=== PATIENT | female | born 1995 | race Caucasian/White ===

== ENCOUNTER 2017-03-23 11:10 | Emergency (ER) | payer BC, OTHER ==
[2017-03-23 11:16] VITALS: BP 114/76; PULSE 89; TEMP 97.4; BMI 36.8
[2017-03-23] MEDS ORDERED: KETOROLAC TROMETHAMINE 60 MG/2 ML VIAL IM ONE (11:53)
[2017-03-23] MEDS ORDERED: CYCLOBENZAPRINE HCL 10 MG TABLET (FP) PO ONE (11:53)
--- NOTE | 2017-03-23 11:59 | PDOC ---
History of Present Illness - General Chief Complaint: Back Pain Stated Complaint: BACK PAIN Time Seen by Provider: 03/23/17 11:43 History Source: Patient Exam Limitations: No Limitations - History of Present Illness Initial Comments: 03/23/17 11:58 Sent here with complaints of low back strain and spasm 2 days. States had onset of low back pain that was intermittent and spontaneous resolved over the past 2 months but 2 days ago sneezed and had acute onset of spasm to her low back. Denies numbness or tingling to toes, denies any dysuria or bowel problems , no vaginal complaints. Has never had known injury, no car accidents, no exercise changes. 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 03/23/17 11:59 Occurred: denies: just prior to arrival Severity: reports: mild, moderate Pain Location: reports: back Method of Injury: Yes: unknown Loss of Consciousness: no loss of consciousness Associated Symptoms (Fall): denies symptoms Past History - Travel Traveled outside of the country in the last 30 days: No Close contact w/someone who was outside of country & ill: No - Past Medical History Allergies/Adverse Reactions: Allergies Allergy/AdvReac Type Severity Reaction Status Date / Time No Known Allergies Allergy Verified 03/23/17 11:16 Home Medications: Ambulatory Orders Cyclobenzaprine HCl [Flexeril 10 mg] 10 mg PO BID PRN #14 tablet 03/23/17 COPD: No - Immunization History Immunization Up to Date: Yes - Suicide/Smoking/Psychosocial Hx Smoking Status: No Smoking History: Never smoked Number of Cigarettes Smoked Daily: 0 Hx Alcohol Use: Yes (social) Drug/Substance Use Hx: No Substance Use Type: None Trauma Specific PMHX - Complaint Specific PMHX Back Injury: No Neck Injury: No Review of Systems - Review of Systems Able to Perform ROS?: Yes Is the patient limited Prydeinig proficient: Yes Constitutional: Yes: Symptoms Reported, See HPI, Malaise HEENTM: No: Symptoms Reported Respiratory: Yes: Symptoms reported ABD/GI: Yes: See HPI. No: Symptoms Reported Musculoskeletal: Yes: Symptoms Reported, See HPI, Back Pain, Joint Swelling Integumentary: Yes: Symptoms Reported Neurological: Yes: Symptoms reported, See HPI. No: Numbness, Paresthesia *Physical Exam - Vital Signs Last Vital Signs Temp Pulse Resp BP Pulse Ox 97.4 F L 89 20 114/76 97 03/23/17 11:13 03/23/17 11:13 03/23/17 11:13 03/23/17 11:13 03/23/17 11:13 - Physical Exam General Appearance: Yes: Nourished, Appropriately Dressed, Apparent Distress, Mild Distress HEENT: positive: TRESSA, Normal ENT Inspection, TMs Normal, Pharynx Normal Neck: positive: Supple. negative: Lymphadenopathy (R), Lymphadenopathy (L) Respiratory/Chest: positive: Lungs Clear, Normal Breath Sounds Gastrointestinal/Abdominal: positive: Soft Musculoskeletal: positive: Normal Inspection, Decreased Range of Motion (range of motion secondary to palpable spasm to paravertebral spinous muscles), Muscle Spasm. 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 NML intact, Fully Oriented, Alert, Normal Mood/ Affect, Normal Response, Motor Strength 5/5 Progress Note - Progress Note Progress Note: Back spasm, will treat with NSAIDs and cyclobenzaprine *DC/Admit/Observation/Transfer Diagnosis at time of Disposition: Spasm of back muscles - Discharge Dispostion Disposition: HOME Condition at time of disposition: Stable Admit: No - Referrals - Patient Instructions Printed Discharge Instructions: DI for Back Spasm Additional Instructions: Rest, no heavy lifting or exercise until pain is resolved Hot soaks to neck and low back as often as possible/hot showers or Jacuzzis No massage or therapy until spasm is gone Continue ibuprofen 2-200 mg tablets every 6 hours for the next 3 days then as needed for pain and swelling Cyclobenzaprine 1-10mg every 8 hours as needed for spasm If not significant improvement within 24 hours with medication and rest regime, followup with private physician for change in medications and /or therapy. - Post Discharge Activity Forms/Work/School Notes: Back to Work
[2017-03-23] MEDS ORDERED: CYCLOBENZAPRINE HCL 10 MG TABLET (FP) ONE (12:02)
[2017-03-23] MEDS ORDERED: KETOROLAC TROMETHAMINE 60 MG/2 ML VIAL ONE (12:02)
== END 2017-03-23 12:11 | disposition home or self-care (01) ==
LOC: JERFT 11:10
PROC: 3E0233Z Introduction of Anti-inflammatory into Muscle, Percutaneous Approach (ICD-10-PCS; principal; 2017-03-23)
DX: M62.830 Muscle spasm of back (principal)
CPT/HCPCS: 99281-25

== ENCOUNTER 2017-06-24 22:15 | Emergency (ER) | payer BC, OTHER ==
[2017-06-24 22:49] VITALS: BMI 39.1
[2017-06-25] MEDS ORDERED: ACETAMINOPHEN 325 MG TABLET (FP) PO ONE (00:41)
[2017-06-25] MEDS ORDERED: ONDANSETRON 4 MG/2 ML VIAL IVPB ONE (00:41)
[2017-06-25] MEDS ORDERED: LACTATED RINGERS SOLUTION 1,000 ML/1,000 ML INFUS.BAG IV SCH (00:45)
--- NOTE | 2017-06-25 00:51 | PDOC ---
History of Present Illness - General History Source: Patient Exam Limitations: No Limitations - History of Present Illness Initial Comments: 06/25/17 00:59 The patient is a 22 year old female, with no significant past medical history who presents to the emergency department with fever (Tmax 102.3) and diarrhea for the past two days. Patient reports loose stools (non bloody) with associated cold sweats, body aches and decreased appetite. Upon evaluation, patients vital signs significant for 100.1 temperature and 92 HR. Patient denies sick contacts or recent travel. Patient denies chest pain, headache or dizziness. Patient denies nausea, vomit or constipation. Patient denies dysuria, frequency, urgency or hematuria. Allergies: NKA <Barbara Estrada - Last Filed: 06/25/17 00:59> - General History Source: Patient Exam Limitations: No Limitations <Jorge Terry - Last Filed: 06/25/17 02:46> - General Chief Complaint: Diarrhea Stated Complaint: FEVER, DEHYDRATION, DIARRHEA Time Seen by Provider: 06/25/17 00:23 Past History <Barbara Estrada - Last Filed: 06/25/17 00:59> - Past Medical History COPD: No - Immunization History Immunization Up to Date: Yes - Suicide/Smoking/Psychosocial Hx Smoking Status: No Smoking History: Never smoked Have you smoked in the past 12 months: No Number of Cigarettes Smoked Daily: 0 Information on smoking cessation initiated: No Hx Alcohol Use: No Drug/Substance Use Hx: No Substance Use Type: None <Jorge Terry - Last Filed: 06/25/17 02:46> - Past Medical History Allergies/Adverse Reactions: Allergies Allergy/AdvReac Type Severity Reaction Status Date / Time No Known Allergies Allergy Verified 06/24/17 22:37 Home Medications: Ambulatory Orders Cyclobenzaprine HCl [Flexeril 10 mg] 10 mg PO BID PRN #14 tablet 03/23/17 Mag Hydrox/Aluminum Hyd/Simeth [Maalox Advanced Suspension] 30 ml PO Q6H PRN # 355 oral.susp 06/25/17 Naproxen 500 mg PO BID PRN #20 tablet 06/25/17 Review of Systems - Review of Systems Able to Perform ROS?: Yes Comments:: 06/25/17 00:59 GENERAL/CONSTITUTIONAL: + fever. +chills. +Decreased appetite. No weakness. HEAD, EYES, EARS, NOSE AND THROAT: No change in vision. No ear pain or discharge. No sore throat. CARDIOVASCULAR: No chest pain or shortness of breath. RESPIRATORY: No cough, wheezing, or hemoptysis. GASTROINTESTINAL: +diarrhea. No nausea, vomiting or constipation. GENITOURINARY: No dysuria, frequency, or change in urination. MUSCULOSKELETAL: No joint or muscle swelling or pain. No neck or back pain. SKIN: No rash NEUROLOGIC: No headache, vertigo, loss of consciousness, or change in strength/ sensation. ENDOCRINE: No increased thirst. No abnormal weight change. HEMATOLOGIC/LYMPHATIC: No anemia, easy bleeding, or history of blood clots. ALLERGIC/IMMUNOLOGIC: No hives or skin allergy. <Barbara Estrada - Last Filed: 06/25/17 00:59> *Physical Exam - Vital Signs Last Vital Signs Temp Pulse Resp BP Pulse Ox 100.1 F H 92 H 18 92/53 98 06/24/17 22:38 06/24/17 22:38 06/24/17 22:38 06/24/17 22:38 06/24/17 22:38 - Physical Exam Comments: 06/25/17 00:59 GENERAL: Awake, alert, and fully oriented, in no acute distress. +Obese. HEAD: No signs of trauma EYES: PERRLA, EOMI, sclera anicteric, conjunctiva clear ENT: Auricles normal inspection, hearing grossly normal, nares patent, oropharynx clear without exudates. +Dry mucous membranes. NECK: Normal ROM, supple, no lymphadenopathy, JVD, or masses LUNGS: Breath sounds equal, clear to auscultation bilaterally. No wheezes, and no crackles HEART: Regular rate and rhythm, normal S1 and S2, no murmurs, rubs or gallops ABDOMEN: Soft, nontender, normoactive bowel sounds. No guarding, no rebound. No masses EXTREMITIES: Normal range of motion, no edema. No clubbing or cyanosis. No cords, erythema, or tenderness NEUROLOGICAL: Cranial nerves II through XII grossly intact. Normal speech, normal gait SKIN: Warm, Dry, normal turgor, no rashes or lesions noted. <Barbara Estrada - Last Filed: 06/25/17 00:59> - Vital Signs Last Vital Signs Temp Pulse Resp BP Pulse Ox 100.1 F H 92 H 18 92/53 98 06/24/17 22:38 06/24/17 22:38 04 22:38 06/24/17 22:38 06/24/17 22:38 <Jorge Terry - Last Filed: 06/25/17 02:46> ED Treatment Course - LABORATORY CBC & Chemistry Diagram: 06/25/17 00:45 06/25/17 00:45 <Barbara Estrada - Last Filed: 06/25/17 00:59> - LABORATORY CBC & Chemistry Diagram: 06/25/17 00:45 06/25/17 00:45 <Jorge Terry - Last Filed: 06/25/17 02:46> Medical Decision Making - Medical Decision Making 06/25/17 00:50 A portion of this note was documented by scribe services under my direction. I have reviewed the details of the note, within reason, and agree with the documentation with the following case summary and management plan written by me. Patient treated in the ED. Nursing notes are reviewed and incorporated into the medical decision-making. Vital signs reviewed. Peripheral IV access obtained by the nurse, laboratory studies are drawn and sent, reviewed and interpreted by myself. Vital Signs Temp Pulse Resp BP Pulse Ox 100.1 F H 92 H 18 92/53 98 06/24/17 22:38 04 22:38 04 22:38 06/24/17 22:38 06/24/17 22:38 22-year-old female with no past medical history presents with likely gastroenteritis. Patient reported since yesterday of having multiple loose stools and decreased appetite as well as fevers 102. Denies sick contacts or recent travels. Denies bad food. Came to the ED for further evaluation. The patient is nontoxic appearing. I suspect gastritis. Labs, IV fluids, symptom control reassess. 06/25/17 02:42 CBC, BMP 06/25/17 00:45 06/25/17 00:45 CMP Sodium 137 mmol/L (136-145) 06/25/17 00:45 Potassium 3.8 mmol/L (3.5-5.1) 06/25/17 00:45 Chloride 105 mmol/L (98-107) 06/25/17 00:45 Carbon Dioxide 24 mmol/L (21-32) 06/25/17 00:45 Anion Gap 8 (8-16) 06/25/17 00:45 BUN 13 mg/dL (7-18) 06/25/17 00:45 Creatinine 0.9 mg/dL (0.55-1.02) 06/25/17 00:45 Creat Clearance w eGFR > 60 (>60) 06/25/17 00:45 Random Glucose 92 mg/dL (74-106) 06/25/17 00:45 Calcium 8.7 mg/dL (8.5-10.1) 06/25/17 00:45 Total Bilirubin 0.4 mg/dL (0.2-1.0) D 06/25/17 00:45 AST 334 U/L (15-37) H 06/25/17 00:45 ALT 293 U/L (12-78) H 06/25/17 00:45 Alkaline Phosphatase 90 U/L (45-117) 06/25/17 00:45 Total Protein 7.0 g/dl (6.4-8.2) 06/25/17 00:45 Albumin 3.9 g/dl (3.4-5.0) 06/25/17 00:45 Lipase 102 U/L (73-393) 06/25/17 00:45 Serum , Qual Negative 06/25/17 00:45 Urine Test Results Urine Color [place] 06/25/17 01:36 Urine Appearance Clear 06/25/17 01:36 Urine pH 5.0 (5.0-8.0) 06/25/17 01:36 Ur Specific [place] 1.028 (1.001-1.035) 06/25/17 01:36 Urine Protein 1+ (NEGATIVE) H 06/25/17 01:36 Urine Glucose (UA) Negative (NEGATIVE) 06/25/17 01:36 Urine Ketones Trace (NEGATIVE) H 06/25/17 01:36 Urine Blood Negative (NEGATIVE) 06/25/17 01:36 Urine Nitrite Negative (NEGATIVE) 06/25/17 01:36 Urine Bilirubin Negative (<2.0 mg/dL) 06/25/17 01:36 Ur Leukocyte Esterase Negative (NEGATIVE) 06/25/17 01:36 Ur Epithelial Cells Rare /HPF (FEW) 06/25/17 01:36 Urine Mucus Many 06/25/17 01:36 The patient reports feeling better. Incidentally, the patient is noted to have an AST and ALT 334 and 293. The patient never had right upper quadrant pain and was not nauseous or vomiting. Patient has had intermittent abdominal cramping with diarrhea. I still believe that the patient likely has gastroenteritis and at this time unlikely to have any biliary pathology or cholecystitis or liver pathology. Denies tylenol use. Given that the patient is no right upper quadrant pain and that she has no fever or vomiting, I have instructed the patient to take a copy the results and have her follow-up with outpatient GI for outpatient ultrasound. I advised patient that she has any right upperquadrant pain or vomiting that she should return to the ER. Patient states that she agrees with the plan. The elevated LFTs may be secondary to fatty liver. Otherwise, patient understands plan and agrees with it. I discussed the physical exam findings, ancillary test results and final diagnoses with the patient. I answered all of the patient's questions. The patient was satisfied with the care received and felt comfortable with the discharge plan and treatment plan. The patient will call their primary care physician within 24 hours to arrange follow-up and will return to the Emergency Department with any new, persistant or worsening symptoms. <Jorge Terry - Last Filed: 06/25/17 02:46> *DC/Admit/Observation/Transfer - Attestations Scribe Attestion: 06/25/17 00:59 Documentation prepared by Barbara Estrada, acting as medical officer psychiatry for Jorge Terry MD <Barbara Estrada - Last Filed: 06/25/17 00:59> - Discharge Dispostion Admit: No <Jorge Terry - Last Filed: 06/25/17 02:46> Diagnosis at time of Disposition: Viral gastroenteritis, Elevated LFTs - Discharge Dispostion Disposition: HOME Condition at time of disposition: Improved - Prescriptions Prescriptions: Mag Hydrox/Aluminum Hyd/Simeth [Maalox Advanced Suspension] 30 ml PO Q6H PRN # 355 oral.susp PRN Reason: Abdominal Pain Naproxen 500 mg PO BID PRN #20 tablet PRN Reason: Pain/Fever - Referrals Referrals: Ming Stein MD [Staff Physician] - Daniel Carrera MD [Staff Physician] - - Patient Instructions Printed Discharge Instructions: DI for Viral Gastroenteritis -- Adult Additional Instructions: Your blood work has elevated liver function tests. At this time, we advised that you follow-up with a blasting contract miner. Please call tomorrow to schedule an appointment. He will likely need an outpatient right upper quadrant ultrasound for further evaluation. If you develop any severe abdominal pain in the right upper quadrant, please return to the ER for further evaluation. Please drink plenty fluids and rest. It may take several days before your symptoms improved. - Post Discharge Activity Forms/Work/School Notes: Back to Work
[2017-06-25] MEDS ORDERED: ACETAMINOPHEN 325 MG TABLET (FP) ONE (00:57)
[2017-06-25] MEDS ORDERED: ONDANSETRON 4 MG/2 ML VIAL ONE (00:58)
[2017-06-25 01:06] LABS: BASO % 0.5 % (0-2.0); EOS % 0.5 % (0-4.5); HEMATOCRIT 44.9 % (32.4-45.2); HEMOGLOBIN 15.1 GM/dL (10.7-15.3); LYMPH % 10.5 % (8-40); MCH 29.4 pg (25.7-33.7); MCHC 33.7 g/dl (32.0-36.0); MEAN CELL VOLUME 87.1 fl (80-96); MEAN PLT VOLUME 8.4 fl (7.5-11.1); MONO % 6.1 % (3.8-10.2); NEUT % 82.4 % (42.8-82.8); PLATELET COUNT 345 K/MM3 (134-434); RBC 5.15 M/mm3 (3.60-5.2); WHITE BLOOD COUNT 9.8 K/mm3 (4.0-10.0)
[2017-06-25 01:56] LABS: ALBUMIN 3.9 g/dl (3.4-5.0); ANION GAP 8 (8-16); BILIRUBIN,TOTAL 0.4 mg/dL (0.2-1.0); BLOOD UREA NITROGEN 13 mg/dL (7-18); CALCIUM 8.7 mg/dL (8.5-10.1); CHLORIDE 105 mmol/L (98-107); CO2 24 mmol/L (21-32); CREATININE 0.9 mg/dL (0.55-1.02); GLUCOSE,RANDOM 92 mg/dL (74-106); LIPASE 102 U/L (73-393); POTASSIUM 3.8 mmol/L (3.5-5.1); SGOT/AST 334 U/L (15-37); SGPT/ALT 293 U/L (12-78); SODIUM 137 mmol/L (136-145)
[2017-06-25 01:57] LABS: ALK PHOS 90 U/L (45-117)
[2017-06-25 01:59] LABS: URINE APPEARANCE CLEAR; URINE BILIRUBIN NEGATIVE (<2.0 mg/dL); URINE BLOOD NEGATIVE (NEGATIVE); URINE COLOR AMBER; URINE GLUCOSE (UA) NEGATIVE (NEGATIVE); URINE KETONE TRACE (NEGATIVE); URINE LEUK ESTERASE NEGATIVE (NEGATIVE); URINE NITRITE NEGATIVE (NEGATIVE); URINE UROBILINOGEN NEGATIVE mg/dL (0.2-1.0)
[2017-06-25 02:04] LABS: URINE PROTEIN 1+ (NEGATIVE)
[2017-06-25 02:06] LABS: EPI CELLS RARE /HPF (FEW); URINE MUCUS MANY
[2017-06-25 02:15] LABS: HCG,QUALITATIVE URINE NEGATIVE
[2017-06-25 03:38] VITALS: BP 101/60; PULSE 68; TEMP 98.6
--- NOTE | 2017-06-26 13:21 | EKG ---
Test Reason : Blood Pressure : / mmHG Vent. Rate : 078 BPM Atrial Rate : 078 BPM P-R Int : 154 ms QRS Dur : 078 ms QT Int : 370 ms P-R-T Axes : 052 078 047 degrees QTc Int : 421 ms SINUS RHYTHM WITH MARKED SINUS ARRHYTHMIA OTHERWISE NORMAL ECG NO PREVIOUS ECGS AVAILABLE Confirmed by CLEMENT SCHMIDT MD ([id number]) on 06/26/2017 1:20:55 PM Referred By: Confirmed By:CLEMENT SCHMIDT MD
== END 2017-06-25 03:38 | disposition home or self-care (01) ==
LOC: JER 22:15
PROC: 3E0337Z Introduction of Electrolytic and Water Balance Substance into Peripheral Vein, Percutaneous Approach (ICD-10-PCS; principal; 2017-06-24)
PROC: 3E033GC Introduction of Other Therapeutic Substance into Peripheral Vein, Percutaneous Approach (ICD-10-PCS; 2017-06-24)
DX: A08.4 Viral intestinal infection, unspecified (principal); B97.89 Other viral agents as the cause of diseases classified elsewhere; R74.8 Abnormal levels of other serum enzymes
CPT/HCPCS: 36415; 80053; 81003; 81015; 83690; 84703; 85025; 87086; 93005; 93010; 99282-25

== ENCOUNTER 2019-02-24 12:58 | Emergency (ER) | payer OTHER, BC ==
[2019-02-24 13:10] VITALS: TEMP 97.7; BMI 35.4
[2019-02-24] MEDS ORDERED: ACETAMINOPHEN 1000 MG/100 ML VIAL (NON FORMULARY) IVPB ONE (13:57)
[2019-02-24] MEDS ORDERED: ONDANSETRON 4 MG/2 ML VIAL IVPUSH ONE (13:57)
[2019-02-24] MEDS ORDERED: SODIUM CHLORIDE 1,000 ML IV STA (13:57)
[2019-02-24] MEDS ORDERED: ONDANSETRON 4 MG/2 ML VIAL ONE (14:05)
[2019-02-24] MEDS ORDERED: ACETAMINOPHEN INJECTION 100 ML IVPB ONE (14:05)
--- NOTE | 2019-02-24 14:08 | PDOC ---
*Physical Exam - Vital Signs Last Vital Signs Temp Pulse Resp BP Pulse Ox 97.7 F 62 16 110/72 99 02/24/19 13:07 02/24/19 13:07 02/24/19 13:07 02/24/19 13:07 02/24/19 13:07 ED Treatment Course - LABORATORY CBC & Chemistry Diagram: 02/24/19 14:10 02/24/19 14:10 Medical Decision Making - Medical Decision Making 02/24/19 14:07 Ms King is a 23 yo F who presents to the ER with a complaint of RLQ pain Symptoms have been present for 1 week but were intermittent Over the past day pain has been chronic and persistent Pt seen by Midlevel Provider under my direct supervision Pt interviewed and examined On examination Patient is overall well appearing Regular rate and rhythm Clear to auscultation bilaterally No abdominal distention Right lower abdominal tenderness to deep palpation Ancillary studies reviewed Laboratory Tests 02/24/19 02/24/19 02/24/19 14:08 14:08 14:10 WBC 6.5 Hgb 14.1 Hct 42.7 Plt Count 407 Urine Blood Negative Urine Nitrite Negative Ur Leukocyte Esterase Negative Urine HCG, Qual Negative Ultrasound pending CT pending I agree with plan as outlined by Midlevel Provider 02/24/19 15:40 US with right ovarian cyst 4 x 2 Nml flow No evidence of appendicitis Pt will need to follow up with financial examiner for cyst Discharge - Discharge Information Problems reviewed: Yes Clinical Impression/Diagnosis: Ovarian cyst Qualifiers: Laterality: right Qualified Code(s): N83.201 - Unspecified ovarian cyst, right side Condition: Stable Disposition: HOME - Additional Discharge Information Prescriptions: Ibuprofen 600 mg PO Q6H #30 tablet - Follow up/Referral Referrals: Bing Salinas MD [Primary Care Provider] - - Patient Discharge Instructions Patient Printed Discharge Instructions: DI for Ovarian Cyst Additional Instructions: You were evaluated for your abdominal pain today. You have an ovarian cyst which is most likely causing your symptoms. Please take Motrin 600 mg every 6 hours for pain. You may place a heating pad over the area to help with the pain. Please follow-up with your LOOM CHANGER this week. Return to the ER for worsening pain, vomiting, lightheadedness or if you have any changes in your symptoms. - Post Discharge Activity Work/Back to School Note: Back to Work
[2019-02-24 14:27] LABS: URINE APPEARANCE CLEAR; URINE BILIRUBIN NEGATIVE (NEGATIVE); URINE COLOR YELLOW; URINE GLUCOSE (UA) NEGATIVE (NEGATIVE); URINE KETONE NEGATIVE (NEGATIVE); URINE LEUK ESTERASE NEGATIVE (NEGATIVE); URINE NITRITE NEGATIVE (NEGATIVE); URINE PROTEIN NEGATIVE (NEGATIVE); URINE UROBILINOGEN 0.2 mg/dL (0.2-1.0)
[2019-02-24 15:09] LABS: EOS % 2.9 % (0-4.5); HEMATOCRIT 42.7 % (32.4-45.2); HEMOGLOBIN 14.1 GM/dL (10.7-15.3); LYMPH % 29.7 % (8-40); MCH 29.7 pg (25.7-33.7); MEAN PLT VOLUME 7.9 fl (7.5-11.1); MONO % 7.9 % (3.8-10.2); NEUT % 58.5 % (42.8-82.8); PLATELET COUNT 407 K/MM3 (134-434); RBC 4.75 M/mm3 (3.60-5.2); WHITE BLOOD COUNT 6.5 K/mm3 (4.0-10.0)
[2019-02-24 15:19] LABS: INR 0.95 (0.83-1.09); PROTHROMBIN TIME (PATIENT) 11.2 SEC (9.7-13.0)
[2019-02-24 15:39] LABS: BILIRUBIN,TOTAL 0.3 mg/dL (0.2-1); BLOOD UREA NITROGEN 12.4 mg/dL (7-18); CALCIUM 9.7 mg/dL (8.5-10.1); CREATININE 0.7 mg/dL (0.55-1.3); POTASSIUM 4.3 mmol/L (3.5-5.1)
--- NOTE | 2019-02-24 15:42 | PDOC ---
History of Present Illness - General Chief Complaint: Pain, Acute Stated Complaint: ABD/PAIN Time Seen by Provider: 02/24/19 13:22 History Source: Patient Exam Limitations: No Limitations Past History - Travel Traveled outside of the country in the last 30 days: No Close contact w/someone who was outside of country & ill: No - Past Medical History Allergies/Adverse Reactions: Allergies Allergy/AdvReac Type Severity Reaction Status Date / Time No Known Allergies Allergy Verified 02/24/19 13:06 Home Medications: Ambulatory Orders Ibuprofen 600 mg PO Q6H #30 tablet 02/24/19 COPD: No - Immunization History Immunization Up to Date: Yes - Psycho Social/Smoking Cessation Hx Smoking Status: No Smoking History: Never smoked Have you smoked in the past 12 months: No Number of Cigarettes Smoked Daily: 0 Hx Alcohol Use: Yes (social) Drug/Substance Use Hx: No Substance Use Type: None Review of Systems - Review of Systems Able to Perform ROS?: Yes Comments:: 02/24/19 15:40 CONSTITUTIONAL: Absent: fever, chills, diaphoresis, generalized weakness, malaise, loss of appetite HEENT: Absent: rhinorrhea, nasal congestion, throat pain, throat swelling, difficulty swallowing, mouth swelling, ear pain, eye pain, visual Changes CARDIOVASCULAR: Absent: chest pain, loss of consciousness, palpitations, irregular heart rate, peripheral edema RESPIRATORY: Absent: cough, shortness of breath, dyspnea with exertion, orthopnea, wheezing, stridor, hemoptysis GASTROINTESTINAL: Absent: abdominal pain, abdominal distension, nausea, vomiting, diarrhea, constipation, melena, hematochezia GENITOURINARY: Absent: dysuria, frequency, urgency, hesitancy, hematuria, flank pain, genital pain MUSCULOSKELETAL: Absent: myalgia, arthralgia, joint swelling SKIN: Absent: rash, itching, pallor HEMATOLOGIC/IMMUNOLOGIC: Absent: easy bleeding, easy bruising, lymphadenopathy, frequent infections ENDOCRINE: Absent: unexplained weight gain, unexplained weight loss, heat intolerance, cold intolerance NEUROLOGIC: Absent: headache, focal weakness or paresthesias, dizziness, unsteady gait, seizure, mental status changes, bladder or bowel incontinence PSYCHIATRIC: Absent: anxiety, depression, suicidal or homicidal ideation, hallucinations. Is the patient limited Slovak proficient: No *Physical Exam - Vital Signs Last Vital Signs Temp Pulse Resp BP Pulse Ox 97.7 F 62 16 110/72 99 02/24/19 13:07 02/24/19 13:07 02/24/19 13:07 02/24/19 13:07 02/24/19 13:07 ED Treatment Course - LABORATORY CBC & Chemistry Diagram: 02/24/19 14:10 02/24/19 14:10 - ADDITIONAL ORDERS Additional order review: Laboratory Results 02/24/19 02/24/19 02/24/19 14:10 14:10 14:08 PT with INR 11.20 INR 0.95 Sodium 138 Potassium 4.3 Chloride 106 Carbon Dioxide 26 Anion Gap 6 L BUN 12.4 Creatinine 0.7 Est GFR (CKD-EPI)AfAm 141.54 Est GFR (CKD-EPI)NonAf 122.12 Random Glucose 77 Calcium 9.7 Total Bilirubin 0.3 AST 15 ALT 26 Alkaline Phosphatase 87 Total Protein 7.0 Albumin 4.0 Urine Color Yellow Urine Appearance Clear Urine pH 7.0 D Ur Specific [place] 1.020 Urine Protein Negative Urine Glucose (UA) Negative Urine Ketones Negative Urine Blood Negative Urine Nitrite Negative Urine Bilirubin Negative Urine Urobilinogen 0.2 Ur Leukocyte Esterase Negative Urine HCG, Qual 02/24/19 14:08 PT with INR INR Sodium Potassium Chloride Carbon Dioxide Anion Gap BUN Creatinine Est GFR (CKD-EPI)AfAm Est GFR (CKD-EPI)NonAf Random Glucose Calcium Total Bilirubin AST ALT Alkaline Phosphatase Total Protein Albumin Urine Color Urine Appearance Urine pH Ur Specific [place] Urine Protein Urine Glucose (UA) Urine Ketones Urine Blood Urine Nitrite Urine Bilirubin Urine Urobilinogen Ur Leukocyte Esterase Urine HCG, Qual Negative 02/24/19 14:10 RBC 4.75 MCV 90.0 MCHC 33.0 RDW 13.0 MPV 7.9 Neutrophils % 58.5 D Lymphocytes % 29.7 D Monocytes % 7.9 Eosinophils % 2.9 D Basophils % 1.0 - RADIOLOGY Radiology Studies Ordered: Category Date Time Status ABDOMEN & PELVIS CT WITH CONTR [CT] Stat CT Scan 02/24/19 13:56 Ordered TRANSVAGINAL ULTRASOUND US [US] Stat Ultrasound 02/24/19 13:56 Ordered - Medications Given in the ED: ED Medications Discontinued Medications Generic Name Dose Route Start Last Admin Trade Name Freq PRN Reason Stop Dose Admin Acetaminophen 1,000 mg 02/24/19 13:57 02/24/19 15:10 Ofirmev Injection - IVPB 02/24/19 13:58 1,000 mg ONCE ONE Administration Sodium Chloride 1,000 mls @ 1,000 mls/hr 02/24/19 13:57 02/24/19 15:10 Normal Saline - IV 02/24/19 14:56 1,000 mls/hr ASDIR STA Administration Ondansetron HCl 4 mg 02/24/19 13:57 02/24/19 15:10 Zofran Injection IVPUSH 02/24/19 13:58 4 mg ONCE ONE Administration Discharge - Discharge Information Problems reviewed: Yes Clinical Impression/Diagnosis: Ovarian cyst Qualifiers: Laterality: right Qualified Code(s): N83.201 - Unspecified ovarian cyst, right side Condition: Stable Disposition: HOME - Admission No - Additional Discharge Information Prescriptions: Ibuprofen 600 mg PO Q6H #30 tablet - Follow up/Referral Referrals: Bing Salinas MD [Primary Care Provider] - - Patient Discharge Instructions Patient Printed Discharge Instructions: DI for Ovarian Cyst Additional Instructions: You were evaluated for your abdominal pain today. You have an ovarian cyst which is most likely causing your symptoms. Please take Motrin 600 mg every 6 hours for pain. You may place a heating pad over the area to help with the pain. Please follow-up with your HANDLE SEWER this week. Return to the ER for worsening pain, vomiting, lightheadedness or if you have any changes in your symptoms. - Post Discharge Activity Work/Back to School Note: Back to Work
[2019-02-24 17:39] VITALS: BP 107/65; PULSE 72
[2019-02-24] MEDS ORDERED: KETOROLAC TROMETHAMINE 30 MG/1 ML VIAL IVPUSH ONE (17:40)
[2019-02-24] MEDS ORDERED: KETOROLAC TROMETHAMINE 30 MG/1 ML VIAL ONE (18:04)
== END 2019-02-24 18:32 | disposition home or self-care (01) ==
LOC: JER 12:58
PROC: 3E033NZ Introduction of Analgesics, Hypnotics, Sedatives into Peripheral Vein, Percutaneous Approach (ICD-10-PCS; principal; 2019-02-24)
PROC: 3E0333Z Introduction of Anti-inflammatory into Peripheral Vein, Percutaneous Approach (ICD-10-PCS; 2019-02-24)
PROC: 3E033GC Introduction of Other Therapeutic Substance into Peripheral Vein, Percutaneous Approach (ICD-10-PCS; 2019-02-24)
DX: N83.201 Unspecified ovarian cyst, right side (principal)
CPT/HCPCS: 36415; 74177-TC; 76830-TC; 80053; 81003; 84703; 85025; 85610; 87086; 99283-25; J0131; J7030; Q9967

== ENCOUNTER 2020-09-04 23:12 | Emergency (ER) | payer BC, OTHER ==
[2020-09-04 23:16] VITALS: BP 134/85; PULSE 98; TEMP 97.8; BMI 40.7
[2020-09-04] MEDS ORDERED: MAG HYDROX/AL HYDROX/SIMETH 30 ML UNIT-DOSE CUP PO ONE (23:57)
[2020-09-04] MEDS ORDERED: ACETAMINOPHEN 325 MG TABLET (FP) PO ONE (23:57)
[2020-09-04] MEDS ORDERED: FAMOTIDINE 20 MG TABLET PO ONE (23:58)
[2020-09-05] MEDS ORDERED: MAG HYDROX/AL HYDROX/SIMETH 30 ML UNIT-DOSE CUP ONE (00:17)
[2020-09-05] MEDS ORDERED: FAMOTIDINE 20 MG TABLET ONE (00:17)
[2020-09-05] MEDS ORDERED: ACETAMINOPHEN 325 MG TABLET (FP) ONE (00:17)
[2020-09-05 00:53] LABS: BASO % 1.5 % (0-2.0); EOS % 2.3 % (0-4.5); HEMATOCRIT 43.4 % (32.4-45.2); HEMOGLOBIN 14.7 GM/dL (10.7-15.3); LYMPH % 34.5 % (8-40); MCH 29.2 pg (25.7-33.7); MCHC 33.8 g/dl (32.0-36.0); MEAN CELL VOLUME 86.5 fl (80-96); MEAN PLT VOLUME 7.9 fl (7.5-11.1); MONO % 7.7 % (3.8-10.2); PLATELET COUNT 407 K/MM3 (134-434); RBC 5.02 M/mm3 (3.60-5.2); RDW 12.8 % (11.6-15.6); WHITE BLOOD COUNT 9.3 K/mm3 (4.0-10.0)
[2020-09-05 00:58] LABS: PH,URINE 5.5 (5.0-8.0); URINE APPEARANCE CLEAR; URINE BILIRUBIN NEGATIVE (NEGATIVE); URINE COLOR YELLOW; URINE GLUCOSE (UA) NEGATIVE (NEGATIVE); URINE KETONE NEGATIVE (NEGATIVE); URINE LEUK ESTERASE NEGATIVE (NEGATIVE); URINE NITRITE NEGATIVE (NEGATIVE); URINE PROTEIN NEGATIVE (NEGATIVE); URINE UROBILINOGEN 0.2 mg/dL (0.2-1.0)
[2020-09-05 01:01] LABS: HCG,QUALITATIVE URINE Negative
[2020-09-05 01:14] LABS: ALBUMIN 3.9 g/dl (3.4-5.0); BLOOD UREA NITROGEN 13.8 mg/dL (7-18); CALCIUM 9.5 mg/dL (8.5-10.1)
[2020-09-05 01:17] LABS: CREATININE 0.8 mg/dL (0.55-1.3)
[2020-09-05 01:18] LABS: BILIRUBIN,TOTAL 0.2 mg/dL (0.2-1)
[2020-09-05 01:19] LABS: TOT PROT 7.3 g/dl (6.4-8.2)
== END 2020-09-05 02:37 | disposition home or self-care (01) ==
LOC: JER 23:12
DX: R10.11 Right upper quadrant pain (principal)
CPT/HCPCS: 36415; 76705-TC; 80053; 81003; 83690; 84703; 85025; 87086; 99284-25

== ENCOUNTER 2022-09-15 07:42 | Emergency (ER) | payer BC, OTHER ==
[2022-09-15 07:50] VITALS: BP 116/63; PULSE 87; RESP 20; TEMP 98.2; BMI 41.5
[2022-09-15] MEDS ORDERED: ACETAMINOPHEN 325 MG TABLET (FP) PO ONE (07:59)
[2022-09-15] MEDS ORDERED: ACETAMINOPHEN 325 MG TABLET (FP) ONE (08:27)
== END 2022-09-15 08:45 | disposition home or self-care (01) ==
LOC: JERFT 07:42 → JER 07:42 → JERFT 08:45
DX: S93.401A Sprain of unspecified ligament of right ankle, initial encounter (principal); M25.571 Pain in right ankle and joints of right foot; M25.471 Effusion, right ankle; W18.42XS Slipping, tripping and stumbling without falling due to stepping into hole or opening, sequela; Y93.01 Activity, walking, marching and hiking; Y92.009 Unspecified place in unspecified non-institutional (private) residence as the place of occurrence of the external cause
CPT/HCPCS: 73590-TC-RT-FY; 73610-TC-RT-FY; 73630-TC-RT-FY; 99283-25